=== PATIENT | female | born 1965 | race Caucasian/White ===

== ENCOUNTER → 2017-08-20 13:13 | Outpatient (CLI) | payer OTHER | END | disposition home or self-care (01) | LOC: D.RT 13:00 | DX: Z02.71 Encounter for disability determination (principal) ==

== ENCOUNTER → 2017-10-05 11:05 | Outpatient (CLI) | payer OTHER | END | disposition home or self-care (01) | LOC: D.RAD 11:00 | DX: Z02.71 Encounter for disability determination (principal) ==